=== PATIENT | male | born 1995 | race Caucasian/White ===

== ENCOUNTER → 2021-03-30 11:02 | Outpatient (CLI) | payer OTHER, SELFPAY ==
[2021-03-30 19:08] LABS: Add Manual Diff / Slide Review NO; Basophils Absolute Auto 0 /uL (0-100); Basophils Percent Auto 0.6 % (0-2); Eosinophils Absolute Auto 0 /uL (0-450); Eosinophils Percent Auto 0.6 % (2-4); Hematocrit 44.1 % (41-53); Hemoglobin 15.5 g/dL (13.5-17.5); Lymphocytes Absolute Auto 1800 /uL (1100-4500); Lymphocytes Percent Auto 34.8 % (25-40); Mean Corpuscular HGB Conc 35.3 % (30-36); Mean Corpuscular Hemoglobin 30.5 PG (26-34); Mean Corpuscular Volume 86.4 fL (80-100); Monocytes Absolute Auto 400 /uL (0-900); Monocytes Percent Auto 8.1 % (3-14); Neutrophils Absolute Auto 2900 /uL (1500-7000); Neutrophils Percent Auto 55.9 % (50-75); Platelet Count 185 X10^3/uL (150-400); Red Cell Distribution Width 12.7 % (11.6-14.8); White Blood Cell Count 5.3 X10^3/uL (4.5-11.0)
[2021-03-30 19:13] LABS: Alanine Aminotransferase 46 IU/L (<50); Albumin 4.7 g/dL (3.5-5.0); Albumin Globulin Ratio 1.7 (1.0-2.8); Alkaline Phosphatase 61 U/L (38-126); Aspartate Aminotransferase 38 IU/L (17-59); BUN Creatinine Ratio 17.1 (6-22); Bilirubin Total 2.5 mg/dL (0.2-1.3); Blood Urea Nitrogen 13 mg/dL (9-20); Calcium 10.1 mg/dL (8.4-10.2); Carbon Dioxide 32 mmol/L (22-32); Chloride 105 mmol/L (98-107); Estimated Glomerular Filt Rate > 60.0 mL/min (>60); Globulin 2.8 g/dL (1.7-4.1); Glucose 92 mg/dL (70-100); HEMOLYSIS < 15 (0-50); Potassium 4.4 mmol/L (3.4-5.1); Sodium 141 mmol/L (137-145); Total Protein 7.5 g/dL (6.3-8.2)
== END ==
PROVIDERS: PCP Physician Assistant; Visit Provider Physician Assistant
DX: R53.83 Other fatigue (principal); Z00.00 Encounter for general adult medical examination without abnormal findings; Z86.59 Personal history of other mental and behavioral disorders
CPT/HCPCS: 80053; 85025

== ENCOUNTER → 2021-05-15 12:06 | Outpatient (CLI) | payer OTHER, SELFPAY ==
[2021-05-15 20:08] LABS: Alanine Aminotransferase 25 IU/L (<50); Albumin 4.8 g/dL (3.5-5.0); Albumin Globulin Ratio 1.8 (1.0-2.8); Alkaline Phosphatase 82 U/L (38-126); Aspartate Aminotransferase 29 IU/L (17-59); BUN Creatinine Ratio 13.6 (6-22); Bilirubin Total 1.2 mg/dL (0.2-1.3); Blood Urea Nitrogen 12 mg/dL (9-20); Calcium 9.8 mg/dL (8.4-10.2); Carbon Dioxide 27 mmol/L (22-32); Chloride 106 mmol/L (98-107); Estimated Glomerular Filt Rate > 60.0 mL/min (>60); Globulin 2.6 g/dL (1.7-4.1); Glucose 84 mg/dL (70-100); HEMOLYSIS < 15 (0-50); Potassium 4.3 mmol/L (3.4-5.1); Sodium 141 mmol/L (137-145); Total Protein 7.4 g/dL (6.3-8.2)
== END ==
PROVIDERS: PCP Physician Assistant; Visit Provider Physician Assistant
DX: R17 Unspecified jaundice (principal)
CPT/HCPCS: 80053

== ENCOUNTER → 2021-11-08 12:35 | Outpatient (CLI) | payer OTHER, SELFPAY ==
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
== END ==
PROVIDERS: PCP Physician Assistant; Referring Provider Physician Assistant; Visit Provider Physician Assistant
DX: S06.0X9A Concussion with loss of consciousness of unspecified duration, initial encounter (principal); X58.XXXA Exposure to other specified factors, initial encounter
CPT/HCPCS: 70450

== ENCOUNTER → 2023-01-03 09:22 | Outpatient (CLI) | payer OTHER, SELFPAY ==
[2023-01-03 19:18] LABS: Alanine Aminotransferase 55 IU/L (<50); Albumin 4.4 g/dL (3.5-5.0); Albumin Globulin Ratio 1.5 (1.0-2.8); Alkaline Phosphatase 72 U/L (38-126); Aspartate Aminotransferase 39 IU/L (17-59); BUN Creatinine Ratio 20.5 (6-22); Bilirubin Total 1.6 mg/dL (0.2-1.3); Blood Urea Nitrogen 15 mg/dL (9-20); Calcium 9.8 mg/dL (8.4-10.2); Carbon Dioxide 29 mmol/L (22-32); Chloride 102 mmol/L (98-107); Estimated Glomerular Filt Rate > 60 mL/min (>60); Globulin 2.9 g/dL (1.7-4.1); Glucose 89 mg/dL (70-100); HEMOLYSIS < 15 (0-50); Potassium 4.3 mmol/L (3.4-5.1); Sodium 138 mmol/L (137-145); Total Protein 7.3 g/dL (6.3-8.2)
[2023-01-03 19:23] LABS: Add Manual Diff / Slide Review NO; Basophils Absolute Auto 0 /uL (0-100); Basophils Percent Auto 0.6 % (0-2); Eosinophils Absolute Auto 100 /uL (0-450); Eosinophils Percent Auto 0.9 % (2-4); Hematocrit 44.6 % (41-53); Hemoglobin 15.6 g/dL (13.5-17.5); Lymphocytes Absolute Auto 2000 /uL (1100-4500); Mean Corpuscular HGB Conc 34.9 % (30-36); Mean Corpuscular Hemoglobin 30.2 PG (26-34); Mean Corpuscular Volume 86.5 fL (80-100); Monocytes Absolute Auto 500 /uL (0-900); Neutrophils Absolute Auto 3600 /uL (1500-7000); Neutrophils Percent Auto 58.5 % (50-75); Platelet Count 194 X10^3/uL (150-400); Red Blood Cell Count 5.15 X10^6/uL (4.5-5.9); Red Cell Distribution Width 13.3 % (11.6-14.8); White Blood Cell Count 6.2 X10^3/uL (4.5-11.0)
== END ==
PROVIDERS: PCP Physician Assistant; Visit Provider Physician Assistant
DX: R14.0 Abdominal distension (gaseous) (principal); R19.8 Other specified symptoms and signs involving the digestive system and abdomen; Z80.0 Family history of malignant neoplasm of digestive organs
CPT/HCPCS: 80053; 85025

== ENCOUNTER → 2023-01-28 08:31 | Outpatient (CLI) | payer OTHER, SELFPAY ==
[2023-01-28 19:49] LABS: Alanine Aminotransferase 51 IU/L (<50); Albumin 4.6 g/dL (3.5-5.0); Albumin Globulin Ratio 1.5 (1.0-2.8); Alkaline Phosphatase 74 U/L (38-126); Aspartate Aminotransferase 39 IU/L (17-59); BUN Creatinine Ratio 20.3 (6-22); Bilirubin Total 2.5 mg/dL (0.2-1.3); Blood Urea Nitrogen 14 mg/dL (9-20); Calcium 9.9 mg/dL (8.4-10.2); Carbon Dioxide 25 mmol/L (22-32); Chloride 105 mmol/L (98-107); Estimated Glomerular Filt Rate > 60 mL/min (>60); Glucose 98 mg/dL (70-100); HEMOLYSIS < 15 (0-50); Potassium 4.2 mmol/L (3.4-5.1); Sodium 138 mmol/L (137-145); Total Protein 7.6 g/dL (6.3-8.2)
[2023-01-28 20:13] LABS: TSH w/ Reflex to FT4 1.43 uIU/mL (0.47-4.68)
== END ==
PROVIDERS: PCP Physician Assistant; Visit Provider Physician Assistant
DX: F31.81 Bipolar II disorder (principal); R17 Unspecified jaundice; R74.01 Elevation of levels of liver transaminase levels
CPT/HCPCS: 80053; 84443

== ENCOUNTER → 2023-02-14 11:32 | Outpatient (CLI) | payer OTHER, SELFPAY ==
[2023-02-14 18:52] LABS: Add Manual Diff / Slide Review NO; Basophils Absolute Auto 0 /uL (0-100); Basophils Percent Auto 0.5 % (0-2); Eosinophils Absolute Auto 0 /uL (0-450); Eosinophils Percent Auto 0.5 % (2-4); Hemoglobin 15.8 g/dL (13.5-17.5); Lymphocytes Absolute Auto 2200 /uL (1100-4500); Lymphocytes Percent Auto 34.2 % (25-40); Mean Corpuscular Hemoglobin 30.8 PG (26-34); Mean Corpuscular Volume 85.6 fL (80-100); Monocytes Absolute Auto 400 /uL (0-900); Monocytes Percent Auto 6.6 % (3-14); Neutrophils Absolute Auto 3800 /uL (1500-7000); Neutrophils Percent Auto 58.2 % (50-75); Platelet Count 203 X10^3/uL (150-400); Red Blood Cell Count 5.14 X10^6/uL (4.5-5.9); Red Cell Distribution Width 12.9 % (11.6-14.8); White Blood Cell Count 6.5 X10^3/uL (4.5-11.0)
[2023-02-14 19:04] LABS: Alanine Aminotransferase 48 IU/L (<50); Albumin 4.7 g/dL (3.5-5.0); Albumin Globulin Ratio 1.6 (1.0-2.8); Alkaline Phosphatase 71 U/L (38-126); Aspartate Aminotransferase 39 IU/L (17-59); BUN Creatinine Ratio 19.4 (6-22); Bilirubin Total 2.3 mg/dL (0.2-1.3); Blood Urea Nitrogen 14 mg/dL (9-20); Calcium 9.7 mg/dL (8.4-10.2); Carbon Dioxide 23 mmol/L (22-32); Chloride 103 mmol/L (98-107); Estimated Glomerular Filt Rate > 60 mL/min (>60); Glucose 92 mg/dL (70-100); HEMOLYSIS < 15 (0-50); Sodium 138 mmol/L (137-145); Total Protein 7.7 g/dL (6.3-8.2)
[2023-02-18 12:49] LABS: Lamotrigine Lamictal <1.0 ug/mL (2.0-20.0)
== END ==
PROVIDERS: PCP Physician Assistant; Visit Provider Physician Assistant
DX: R74.01 Elevation of levels of liver transaminase levels (principal); R17 Unspecified jaundice; Z79.899 Other long term (current) drug therapy
CPT/HCPCS: 80053; 80175; 85025

== ENCOUNTER → 2023-09-17 11:35 | Outpatient (CLI) | payer OTHER, SELFPAY ==
[2023-09-17 21:12] LABS: Bilirubin Total 2.2 mg/dL (0.2-1.3)
== END ==
PROVIDERS: PCP Physician Assistant; Visit Provider Physician Assistant
DX: E80.6 Other disorders of bilirubin metabolism (principal); Z79.899 Other long term (current) drug therapy
CPT/HCPCS: 80175; 82247; 82248

== ENCOUNTER 2024-04-16 09:29 | Day surgery (SDC) | payer OTHER, SELFPAY ==
[2024-04-16 09:51] VITALS: BP 122/72; PULSE 67; RESP 16; TEMP 36.8; O2SAT 97
[2024-04-16] MEDS: LACTATED RINGERS 1,000 ML 42 ML IV (10:03)
--- NOTE | 2024-04-16 10:20 | P.HP_ITS ---
History of Present Illness History of Present Illness Date Patient Seen: 04/16/24 Time Patient Seen: 10:20 Chief complaint: Colonoscopy w/poss bx Narrative: Franklin is a 28-year-old man with a family history of colon cancer. His father had colon cancer in his 40s. Franklin has also had rectal bleeding. See the prior telehealth note for details. [facility] Medical History (Updated 07/24/23 @ 18:26 by Josy Martell PA-C) Vision disorder History of bipolar disorder (~2016) Ankle pain (~2007) Family History (Updated 03/28/21 @ 22:38 by Stephanie Glover) Father Cancer Grandfather Cancer Social History Smoking Status: Never smoker alcohol intake: never Meds Home Medications and Allergies Home Medications Medication Instructions Recorded Confirmed Type lamotrigine 25 mg tablet 50 mg (2 x 25 mg) PO DAILY #60 tabs 03/18/24 04/16/24 Rx Allergies Allergy/AdvReac Type Severity Reaction Status Date / Time No Known Drug Allergies Allergy Verified 04/16/24 09:49 Exam Vital Signs (past 8 hours): - 04/16/24 09:51 Temperature 98.2 F Pulse Rate 67 Respiratory Rate 16 Blood Pressure 122/72 Pulse Oximetry 97 Oxygen Delivery Method Room Air Oxygen Delivery Method Room Air Const General: No acute distress Resp Effort & Inspection: normal respiratory effort Assessment & Plan Assessment and plan (1) Family history of colon cancer: Problem details: Father diagnosed age 48; start screening 38 Status: Acute Plan Colonoscopy for family history of colon cancer and rectal bleeding Time-Based Coding :: [TOTAL MINUTES] spent with patient and on the chart (including review of chart, obtaining history, exam, reviewing outside data, placing orders, documenting exam and treatment plan, and counseling patient) on [DATE]. PROFEE Sas Administrator Document charge(s): No
[2024-04-16 10:50] VITALS: BP 109/60; PULSE 81; RESP 16; TEMP 36.6; O2SAT 95
--- NOTE | 2024-04-16 10:50 | PM.OP.COLON ---
Operative Date/Time/Diagnoses Date of procedure: 04/16/24 Time of procedure: 10:50 Pre-op diagnosis: Family colon cancer Post-op diagnosis: same Procedure & Clinicians Study performed: Colonoscopy Same procedure as scheduled: Yes Surgeon: Sb Enrique Procedure Notes Procedure in detail: Surgeon: Sb Enrique MD Anesthesia: Marsha Watson DO Procedure: The patient was brought to the endoscopy suite, placed in left lateral decubitus position. The patient was connected to monitoring devices. A time-out was performed. Sedation was administered. Once the patient was adequately sedated, a digital rectal exam was performed and was normal. The scope was then inserted and advanced to the cecum where the appendiceal orifice was identified and photographed. The scope was then slowly withdrawn over greater than 6 minutes. The mucosa was thoroughly inspected. No abnormalities were identified. The scope was retroflexed in the rectum. The scope was straightened and removed. The patient was awakened and brought to recovery. Scope withdrawal time: 10 minutes Sedation time: 14 minutes EBL: 0 Findings: Normal colon Post-procedure Recommendations: Colonoscopy in 5 years Disposition: PACU
[2024-04-16 10:56] VITALS: BP 108/64; PULSE 69; RESP 12; O2SAT 96
[2024-04-16 11:00] VITALS: BP 106/65; PULSE 79; RESP 11; O2SAT 96
[2024-04-16 11:04] VITALS: BP 105/65; PULSE 69; RESP 10; TEMP 36.1; O2SAT 98
== END 2024-04-16 11:13 | disposition home or self-care (01) ==
PROVIDERS: PCP Physician Assistant; Referring Provider Surgery; Visit Provider Surgery
PROC: 0DJD8ZZ Inspection of Lower Intestinal Tract, Via Natural or Artificial Opening Endoscopic (ICD-10-PCS; CPT 45378; principal; 2024-04-16 10:45)
DX: Z12.11 Encounter for screening for malignant neoplasm of colon (principal); Z80.0 Family history of malignant neoplasm of digestive organs
CPT/HCPCS: 45378; J2704

== ENCOUNTER → 2024-08-24 13:01 | Outpatient (CLI) | payer OTHER, SELFPAY ==
[2024-08-24 19:36] LABS: Add Manual Diff / Slide Review NO; Hematocrit 45.4 % (41-53); Hemoglobin 16.3 g/dL (13.5-17.5); Lymphocytes Absolute Auto 1800 /uL (1100-4500); Mean Corpuscular HGB Conc 35.9 % (30-36); Mean Corpuscular Hemoglobin 31.1 PG (26-34); Mean Corpuscular Volume 86.7 fL (80-100); Platelet Count 188 X10^3/uL (150-400)
[2024-08-24 19:41] LABS: Alanine Aminotransferase 40 IU/L (<50); Albumin 4.7 g/dL (3.5-5.0); Albumin Globulin Ratio 1.9 (1.0-2.8); Alkaline Phosphatase 71 U/L (38-126); Blood Urea Nitrogen 12 mg/dL (9-20); Calcium 9.5 mg/dL (8.4-10.2); Carbon Dioxide 25 mmol/L (22-32); Chloride 105 mmol/L (98-107); Estimated Glomerular Filt Rate > 60 mL/min (>60); Globulin 2.5 g/dL (1.7-4.1); Glucose 105 mg/dL (70-99); HEMOLYSIS < 15 (0-50); Potassium 4.1 mmol/L (3.4-5.1); Sodium 140 mmol/L (137-145); Total Protein 7.2 g/dL (6.3-8.2)
[2024-08-25 16:33] LABS: HIV 1 & 2 Ab/Ag 4th Gen Combo NEGATIVE (NEGATIVE); Hep C Virus Ab w/Reflex Quant NEGATIVE s/c (NEGATIVE)
[2024-08-28 12:09] LABS: Lamotrigine Lamictal <1.0 ug/mL (2.0-20.0)
== END ==
PROVIDERS: PCP Physician Assistant; Visit Provider Physician Assistant
DX: E80.6 Other disorders of bilirubin metabolism (principal); Z79.899 Other long term (current) drug therapy; R74.01 Elevation of levels of liver transaminase levels; M25.542 Pain in joints of left hand; M25.541 Pain in joints of right hand
CPT/HCPCS: 80053; 80175; 85025; 85651; 86803; 87389